=== PATIENT | female | born 1975 | race Caucasian/White ===

== ENCOUNTER 2016-06-26 12:42 | Emergency (ER) | payer OTHER ==
[2016-06-26 13:10] VITALS: BP 137/81
[2016-06-26] MEDS ORDERED: DIPHTH,PERTUSS(ACELL),TET TOX 0.5 ML DISP.SYRIN. VAX IM ONE (14:00)
--- NOTE | 2016-06-26 14:24 | RAD ---
Left hand, 3 views, 06/26/2016: History: Fall, left thumb pain No fracture or dislocation is identified. There are mild degenerative changes at the IP joint of the thumb. IMPRESSION: No acute bony abnormality is detected.
--- NOTE | 2016-06-26 15:05 | PHYS DOC ---
Past Medical History Past Medical History: Hypertension Past Surgical History: Hysterectomy Smoking: Less than 1pk/day Alcohol Use: None Drug Use: None Adult General Chief Complaint Chief Complaint: MECHANICAL FALL HPI HPI Patient is a 40 year old female who presents with left thumb pain after tripping and falling at 1200 today. 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 She hit her head but denies headache or loss of consciousness per she does not have any vision changes or dizziness. She denies nausea, vomiting, neck pain, focal weakness or numbness. She is unsure of her last tetanus immunization. Her PCP is Dr. Lucretia Hines. Review of Systems Review of Systems Constitutional: Denies fever or chills. [] Eyes: Denies change in visual acuity, redness, or eye pain. [] HENT: Denies ear pain, nasal congestion or sore throat. [] Respiratory: Denies cough or shortness of breath. [] Cardiovascular: Denies chest pain, palpitations or edema. [] GI: Denies abdominal pain, nausea, vomiting, bloody stools or diarrhea. [] : Denies dysuria, hematuria or urinary frequency. [] Musculoskeletal: Denies back pain or joint pain. Reports left thumb pain. Integument: Denies rash or skin lesions. Reports left thumb ecchymosis. Neurologic: Denies headache, focal weakness or sensory changes. Denies loss of consciousness or dizziness. Endocrine: Denies polyuria or polydipsia. [] Psych: Denies anxiety or depression. [] All systems reviewed and negative unless otherwise stated in the HPI. Current Medications Current Medications Current Medications Medications (Trade) Dose Ordered Sig/Nasir Start Time Stop Time Status Last Admin Dose Admin Diphtheria/ Tetanus/Acell Pertussis (Boostrix) 0.5 ml ONCE ONCE 06/26/16 14:00 06/26/16 14:06 DC 06/26/16 14:29 0.5 ML Allergies Allergies Allergies Coded Allergies Type Severity Reaction Last Updated Verified No Known Drug Allergies 06/26/16 No Physical Exam Physical Exam Constitutional: Well developed, well nourished, no acute distress, non-toxic appearance. [] HENT: Normocephalic, atraumatic, oropharynx moist. [] Eyes: PERRLA, EOMI, conjunctiva normal, no discharge. [] Neck: Normal range of motion, no tenderness, supple, no stridor. [] Skin: Warm, dry, no erythema, no rash. There is ecchymosis over the thenar imminence of the left palm Back: No midline tenderness, no CVA tenderness. [] Extremities: Left first metacarpal tenderness, ROM mildly decreased due to pain , mild edema. 2+ radial pulses. Less than 2 second capillary refill in the fingers distally. Light touch sensation intact distally. There is tenderness over the snuffbox region. Neurologic: Alert and oriented X 3, normal motor function, normal sensory function, no focal deficits noted. [] Psychologic: Affect normal, judgement normal, mood normal. [] Current Patient Data Vital Signs Vital Signs Date Time Temp Pulse Resp B/P Pulse Ox O2 Delivery O2 Flow Rate FiO2 06/26/16 13:10 98.2 86 18 100 Room Air 98.2 EKG EKG [] Radiology/Procedures Radiology/Procedures REASON: fall, left 1st metacarpal pain, snuffbox tenderness PROCEDURE: HAND LEFT 3V Left hand, 3 views, 06/26/2016: History: Fall, left thumb pain No fracture or dislocation is identified. There are mild degenerative changes at the IP joint of the thumb. IMPRESSION: No acute bony abnormality is detected. Course & Med Decision Making Course & Med Decision Making Pertinent Labs and Imaging studies reviewed. (See chart for details) Patient presents with left thumb pain after mechanical fall. On exam, she does have snuffbox tenderness. She is neurovascularly intact without evidence of compartment syndrome. X-ray does not show any acute fractures or dislocations. She is provided with a Velcro thumb spica splint prior to discharge. She is given contact information for orthopedics for follow-up if her pain continues. Return precautions were discussed. She verbalizes understanding and agrees with plan. Dragon Disclaimer Dragon Disclaimer This electronic medical record was generated, in whole or in part, using a voice recognition dictation system. Departure Departure Impression: Primary Impression: Hand pain, left Disposition: 01 HOME, SELF-CARE Condition: STABLE Referrals: LUCRETIA HINES MD (PCP) LUIS FERNANDO ELDER MD Patient Instructions: Hand Contusion, [id number] Additional Instructions: There were no broken bones or dislocations seen on your x-ray. Please wear the provided splint to help decrease movement and decrease your pain. Please follow-up with the orthopedic doctor listed below if your pain continues. Return to the emergency department if you have any new or concerning symptoms. ERIK ANDREW Jun 26, 2016 15:05
== END 2016-06-26 15:11 | disposition home or self-care (01) ==
LOC: ER 12:42
DX: M79.645 Pain in left finger(s) (principal); M79.642 Pain in left hand; I10 Essential (primary) hypertension; F17.200 Nicotine dependence, unspecified, uncomplicated; W01.198A Fall on same level from slipping, tripping and stumbling with subsequent striking against other object, initial encounter; Y93.89 Activity, other specified; Y92.89 Other specified places as the place of occurrence of the external cause; Y99.8 Other external cause status
CPT/HCPCS: 29125; 73130; 90471; 90715; 99284-25